=== PATIENT | male | born 1960 | race Caucasian/White ===

== ENCOUNTER 2021-04-22 00:22 | Emergency (ER) | payer OTHER ==
[~2021-04-22] VITALS: Ht 190.5 cm; Wt 104.3 kg
[2021-04-22 00:43] LABS: URINE BILIRUBIN NEGATIVE (Negative); URINE BLOOD 2+ (Negative); URINE CLARITY CLEAR; URINE COLOR YELLOW; URINE GLUCOSE-RANDOM NEGATIVE (Negative); URINE KETONES NEGATIVE (Negative); URINE LEUKOCYTES 1+ (Negative); URINE NITRITE NEGATIVE (Negative); URINE PROTEIN TRACE (Negative); URINE UROBILINOGEN 0.2 E.U./dl (0.2-1.0)
[2021-04-22 00:56] LABS: MCH 30.4 pg (26.0-34.0); MCV 89.4 fL (80.0-100.0); MPV 7.3 fl. (7.2-11.1); RBC 5.59 mil/uL (4.50-6.00); RDW-CV 13.3 % (10.5-14.5)
[2021-04-22 01:04] LABS: CALCIUM 8.4 mg/dL (8.5-10.1); POTASSIUM 3.7 mmol/L (3.5-5.1)
[2021-04-22 01:08] LABS: APTT 26.2 Seconds (25.0-31.3); PROTIME 10.4 Seconds (9.20-11.50)
[2021-04-22 01:09] LABS: ALBUMIN 3.9 g/dL (3.4-5.0); TOTAL BILIRUBIN 0.4 mg/dL (<0.1-1.0)
[2021-04-22 01:10] LABS: SQUAMOUS 0-3 Few /LPF (0-3); TRANSITIONAL EPITHEL CELL 4-10 Moderate /LPF (None Seen)
[2021-04-22 01:11] LABS: CRYSTALS None Seen /LPF (None Seen); FINE GRANULAR CASTS 0-3 Few /LPF (None Seen); HYALINE CASTS 0-3 Few /LPF (None Seen); MUCUS 4-6 Moderate strn/LPF (None Seen)
[2021-04-22 01:27] LABS: ALCOHOL 164 mg/dL (<10); SALICYLATE 5.6 mg/dL (2.8-20.0)
[2021-04-22 01:28] LABS: AMP/METHAMP Negative (Negative); BARBITURATES Negative (Negative); BENZODIAZEPINES Negative (Negative); COCAINE Negative (Negative); METHADONE Negative (Negative); OPIATES Negative (Negative); PCP Negative (Negative); THC POSITIVE (Negative)
[2021-04-22 01:41] LABS: ACETAMINOPHEN < 2 ug/mL (10-30)
[2021-04-22 03:15] VITALS: BP 133/78
--- NOTE | 2021-04-22 12:25 | EKG ---
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
== END 2021-04-22 03:15 | disposition home or self-care (01) ==
LOC: M.ERS 00:22
PROVIDERS: Personal Emergency Response Attendant
DX: F10.920 Alcohol use, unspecified with intoxication, uncomplicated (principal); Z20.822 Contact with and (suspected) exposure to COVID-19; R45.6 Violent behavior; Y90.6 Blood alcohol level of 120-199 mg/100 ml